=== PATIENT | male | born 1940 | race Caucasian/White ===

== ENCOUNTER 2019-12-21 23:53 | Inpatient (IN) ==
--- NOTE | 2019-12-22 00:14 | PROVIDER DOCUMENTATION ---
This chart was entered by Rhianna Webster Scribe, acting as scribe for Didier Alvarenga MD. 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 pt denies any other pain or injury Quality of Pain: reports: aching Severity in ED: mild Onset/Duration: 1-3 hours ago Timing: still present Modifying Factors: improves with: movement (increases pain) Any recent injury?: Yes Locality of Occurance: Home Similar Symptoms Previously?: No Recently seen or treated by another doctor?: No - FALL INJURY Location of Pain/Injury: reports: pelvis (left), lower extremity (left upper leg) Pain Radiation: reports: no radiation Reason for Fall: reports: tripped Symptoms prior to fall:: reports: none Loss of Consciousness: no loss of consciousness Injury Associated Symptoms: reports: joint pain, unable to bear weight, trouble walking. denies: sensory/motor loss, snap/crack/pop sensation, pain with inspiration - HIP/PELVIS PAIN/INJURY Hip Pain Location: reports: hip (L) Pain Radiation: reports: upper legs (left) Context / Method of Injury: reports: fall Associated Symptoms: reports: denies symptoms - LOWER EXTREMITY PAIN/INJURY Lower Extremities Pain: hip: left, leg: left Context / Method of Injury: reports: fell Associated Symptoms: reports: denies symptoms - UPPER EXTREMITY PAIN/INJURY Extremities Pain Location: hand: left Context / Method of Injury: reports: fell Associated Symptoms: reports: denies symptoms Review of Systems - Adult - REVIEW OF SYSTEMS - ADULT Constitutional: denies: chills, fever Eyes: denies: blurred vision, double vision Ears, Nose, Mouth & Throat: reports: no symptoms reported Cardiovascular: denies: chest pain, palpitations, syncope Respiratory: denies: shortness of breath Gastrointestinal: denies: abdominal pain, nausea, vomiting Genitourinary: reports: no symptoms reported Musculoskeletal: reports: bone pain (left upper leg), joint pain (left hip). denies: back pain, neck pain Integumentary: reports: no symptoms reported Neurological: denies: dizziness/vertigo, headache/migraines, loss of balance, numbness, syncope Psychiatric: reports: no symptoms reported Endocrine: reports: no symptoms reported Hematologic/Lymphatic: reports: no symptoms reported Allergic/Immunologic: reports: no symptoms reported All Other Systems: Reviewed and Negative Past History - Adult - PAST MEDICAL HISTORY-ADULT Review of Records: reports: Old Records Reviewed, Nursing Assessment Review, Medications Reviewed, Social history reviewed & non-contributory. Major Childhood Illnesses: reports: denies history Cardiovascular: reports: HTN Respiratory: reports: asthma Gastrointestinal: reports: denies history Obstetrical/Gynecological: reports: denies history Genitourinary: reports: denies history Musculoskeletal: reports: denies history Neurological: reports: denies history Psychiatric: reports: denies history Endocrine/Immune: reports: denies history Other Conditions: reports: denies history - PRIOR SURGERIES/PROCEDURES Surgical/Procedure History: reports: orthopedic (extremity) - PRIOR HOSPITALIZATIONS Prior Hospitalizations: reports: for other non-related - IMMUNIZATION STATUS Childhood Immunizations: See Nurse Assessment Flu Vaccine: See Nurse Assessment - FAMILY HISTORY Family History: reviewed, not pertinent - SOCIAL HISTORY Living Situation: family Physical Exam-Injury Related - Physical Exam-Injury Related Initial Vital Signs Reviewed: Yes General Appearance: appears well, alert, no apparent distress Immobilization?: negative: backboard, C-collar Eyes: PERRL/EOMI Head, Ears, Nose, Mouth & Throat: normocephalic/atraumatic, moist mucous membranes Neck: non-tender, full range of motion, supple, normal inspection Respiratory: chest non-tender, lungs clear, normal breath sounds, no respiratory distress, no accessory muscle use Cardiovascular: normal peripheral pulses, regular rate, rhythm, no edema Chest/Breast: deferred Peripheral Pulses: radial (R): 2+, radial (L): 2+ Abdominal Exam: normal bowel sounds, non tender, soft Lymphatic: no adenopathy Back Exam: normal inspection, no CVA tenderness, no vertebral tenderness Extremity: pelvis stable, tenderness (left upper leg tenderness). negative: deformity Integumentary: normal color, warm/dry, abrasion (dorsum, left hand) Neurologic: grossly normal, no motor/sensory deficits Psych/Mental Status: normal mood/affect, normal thought content, normal thought process, oriented x 3 - Glascow Coma Score Best Eye Response (Teddy): (4) open spontaneously Best Verbal Response (Norton): (5) oriented Best Motor Response (Norton): (6) obeys commands Teddy Total: 15 Progress - PLAN OF CARE/RESULTS Progress/Plan/Lab Results: Vital Signs - 8 hr 12/22/19 00:12 Temperature 97.9 F Pulse Rate 63 Respiratory Rate 18 Blood Pressure 199/90 O2 Sat by Pulse Oximetry 95 Orders Category Date Time Status CHEST-1 VIEW [RAD] Stat Exams 12/22/19 01:15 Ordered XRAY PELVIS W/HIP 2-3VW LT [RAD] Stat Exams 12/22/19 00:04 Taken CBC WITH ELECTRONIC DIFF [HEME] Stat Lab 12/22/19 01:13 Ordered COMPREHENSIVE METABOLIC PANEL [CHEM] Stat Lab 12/22/19 01:13 Ordered PT [PROTIME WITH INR] [COAG] Stat Lab 12/22/19 01:14 Uncollected EKG [EKG] Stat Ther 12/22/19 01:14 Ordered - CONSULTS/PCP/HOSPITALIST Notification #1 *Consult/PCP/Hospitalist*: Dr. Gómez, orthopedist Time Discussed: 01:05 Reason/Comments: admit to hospitalist Consult Disposition: Admit #2 Consult: Dr. Finch, hospitalist Time Discussed: 01:15 Consult Disposition: Admit Departure - Departure Date of Disposition Decision: 12/22/19 Time of Disposition Decision: 01:22 DIAGNOSIS: Fracture, intertrochanteric, left femur Qualifiers: Encounter type: initial encounter Fracture type: closed Fracture alignment: nondisplaced Qualified Code(s): S72.145A - Nondisplaced intertrochanteric fracture of left femur, initial encounter for closed fracture Disposition: ADMITTED INPATIENT 09 Certified Medical Emergency: Emergent Condition: Stable Referrals and Follow-Ups: Bertrand Mathis [Primary Care Provider] - - Critical Care Note This patient required my direct & personal management of CC.: No Attestation - Physician/ MAMIE Attestation Patient care was provided by Advanced Practice Provider:: No The physician spent face to face time with patient:: Yes Advanced Practice Provider documentation review:: Supervising physician onsite and consulted in the evaluation and care of this patient. The physician did have a face to face encounter with the patient. This chart was documented by the indicated scribe, (Rhianna Webster Scribe) and accurately reflects the services I performed and decisions made by me, Didier Alvaernga MD, as attested by the provider's signature.
[2019-12-22] MEDS ORDERED: DILAUDID IV ONE (01:30)
[2019-12-22] MEDS ORDERED: ZOFRAN IV ONE (01:31)
[2019-12-22] MEDS ORDERED: NS 1,000 ML IV SCH (02:15)
[2019-12-22 02:20] LABS: BASO# 0.01 X1000 (0.0-0.2); BASO% 0.1 % (0.0-0.8); EOS# 0.04 X1000 (0.0-0.7); EOS% 0.4 % (0.0-10.0); HEMATOCRIT 38.6 % (42.0-52.0); HEMOGLOBIN 13.2 g/dL (14.0-18.0); IMM GRAN# 0.02 X1000 (0.0-0.04); IMM GRAN% 0.2 % (0.0-0.5); LYMPH% 9.1 % (20.5-51.1); MCH 33.6 PG (27-31); MCHC 34.2 g/dL (33-37); MCV 98.2 FL (81-99); MONO# 0.49 X1000 (0.11-0.59); MPV 9.9 FL (7.4-10.4); NEUT# 8.41 X1000 (1.4-6.5); NEUT% 85.2 % (42.2-75.2); PLT 165 X1000 (130-400); RBC 3.93 XMIL (4.7-6.1); RDW 14.1 % (11.5-14.5); WBC 9.87 X1000 (4.8-10.8)
[2019-12-22 02:28] LABS: INR 1.02; PROTIME 13.5 Seconds (11.0-16.0)
[2019-12-22 03:11] LABS: AGAP 13; ALB/GLOB RATIO 1.3; ALBUMIN 3.8 g/dL (3.5-5.0); ALKALINE PHOSPHATASE 48 U/L (32-122); BUN 18 mg/dL (8-22); CALCIUM 9.2 mg/dL (8.8-10.2); CHLORIDE 103 mmol/L (98-107); COSMO 281; CREATININE 0.9 mg/dL (0.7-1.2); ESTIMATED GFR > 60; GLUCOSE 123 mg/dL (70-104); GOT 19 U/L (10-34); GPT 11 U/L (10-44); SODIUM 139 mmol/L (136-145); TCO2 23 mmol/L (25-35); TOTAL BILIRUBIN 0.73 mg/dL (0.20-1.00); TOTAL PROTEIN 6.8 g/dL (6.3-8.3)
[2019-12-22] MEDS: NORCO-5 PO PRN ×2 (04:33→08:59)
--- NOTE | 2019-12-22 05:27 | Diag Imaging Result Doc PS360 ---
EXAM: CHEST-1 VIEW HISTORY: left hip fracture TECHNIQUE: Single view COMPARISON: 07/30/2014 FINDINGS: The lungs are well expanded. The right hemidiaphragm is elevated. No contusion. No pneumothorax. The heart is not enlarged. The vessels are not distended. There are no infiltrates. No effusion identified. IMPRESSION: Negative exam. Electronically signed by Ayaan Montenegro 12/22/2019 5:24 AM
--- NOTE | 2019-12-22 05:34 | Diag Imaging Result Doc PS360 ---
EXAM: XRAY PELVIS W/HIP 2-3VW LT HISTORY: left hip pain TECHNIQUE: Four views COMPARISON: None. FINDINGS: There is an intertrochanteric fracture to the left hip. There is several millimeters of separation. The femoral head remains in the acetabulum. IMPRESSION: Intertrochanteric fracture to the left hip. Electronically signed by Ayaan Montenegro 12/22/2019 5:31 AM
[2019-12-22] MEDS: SYNTHROID PO SCH (09:01)
[2019-12-22] MEDS: TOPROL XL PO SCH (09:01)
[2019-12-22] MEDS: FLOMAX PO SCH (09:01)
[2019-12-22] MEDS: PRINIVIL PO SCH (09:01)
--- NOTE | 2019-12-22 09:44 | HISTORY AND PHYSICAL ---
CHIEF COMPLAINT: Fall prior to admission. HISTORY OF PRESENT ILLNESS: Mr. Daniel Goss is an 79-year-old male who has a history of hypertension, hypothyroidism as well as benign prostatic hypertrophy. The patient tripped and fell prior to admission. On presenting to the emergency department, the patient was noted to have an intertrochanteric fracture involving the left hip. The patient will now be admitted for repair of the fracture. PAST MEDICAL HISTORY: Hypertension, hypothyroidism, as well as benign prostatic hypertrophy. SOCIAL HISTORY: No history of cigarette smoking, alcohol or drug use. ALLERGIES: No known drug allergies. FAMILY HISTORY: Not remarkable. PAST SURGICAL HISTORY: Patient has had left knee surgery as well as laser surgery to the prostate. MEDICATIONS: Include the following. Aspirin 81 mg p.o. daily, lisinopril 10 mg p.o. twice a day, metoprolol 25 mg p.o. twice a day, spironolactone 25 mg 0.5 tablet daily, levothyroxine 50 mcg p.o. once a day. REVIEW OF SYSTEMS: Constitutional: No fever. Central nervous system: No headaches. Eyes: Uses glasses. ENT: No sinus problems or hearing loss. Cardiovascular: No chest pain. Respiratory: No cough. Gastrointestinal: No nausea, vomiting, diarrhea. Genitourinary: No dysuria. Dermatology: No skin lesions. Hematology: No bleeding problems. Psychiatric: No anxiety or depression. Endocrinology: Has thyroid disease but no diabetes. PHYSICAL EXAMINATION: VITAL SIGNS: Temperature 97.9 degrees, respirations 18, blood pressure 199/90, oxygen saturation is 95%. HEENT: Atraumatic, normocephalic. He is anicteric. No oral lesions noted. NECK: No lymphadenopathy or thyromegaly. CARDIOVASCULAR: S1, S2. RESPIRATORY: Has evidence of good entry bilaterally. ABDOMEN: Soft, nontender. No masses felt. EXTREMITIES: No evidence of edema. CENTRAL NERVOUS SYSTEM: No obvious focal deficit noted. LABORATORY DATA: WBC is 9.87, hematocrit is 38.6, with a platelet count of 163,000. INR is 1.02. Sodium is 139, potassium 4.0, chloride is 103, bicarb 23, BUN is 18, creatinine 0.9. IMAGING: X-ray of the pelvis and hip shows evidence of intertrochanteric fracture involving the left hip. ASSESSMENT AND PLAN: 1. Intertrochanteric fracture involving the left hip. Consult with Orthopedics for repair of the fracture. Optimize pain control. 2. Hypertension. Continue current antihypertensive regimen. 3. Hypothyroidism. Check thyroid function tests. Resume her levothyroxine. 4. History of benign prostatic hypertrophy. Aware. 5. Deep vein thrombosis prophylaxis. Sequential compression devices. 6. Gastrointestinal prophylaxis. Proton pump inhibitor. cc: Rob Schulz MD MTDD
--- NOTE | 2019-12-22 10:08 | ORTHOPAEDICS CONSULTATION ---
DATE: 12/22/2019 REASON FOR CONSULTATION: Left hip pain after fall. HISTORY OF PRESENT ILLNESS: Mr. Goss is an 79-year-old male with a past medical history of congestive heart failure, bilateral PEs, prostate cancer, BPH, and hypertension who presented to the [facility] Emergency Room after a fall in his home. He states he got up to go to the restroom in the middle of the night and he tripped over the bed. He denied hitting the head, loss of consciousness, dizziness, or lightheadedness prior to fall. He denies chest pain or shortness of breath, nausea, or vomiting. He states he has significant left hip pain and has been unable to bear weight. He was brought by EMS to [facility] Emergency Room. X-rays were taken in the ER that revealed a left intertrochanteric hip fracture. Orthopedics has been consulted for management of the left hip fracture. PAST MEDICAL HISTORY: 1. Bilateral PEs, not currently on any anticoagulation. 2. Prostate cancer. 3. BPH. 4. Hypertension. 5. Congestive heart failure with an EF of 20% in June 2014. PAST SURGICAL HISTORY: Left knee arthroscopy. FAMILY HISTORY: Noncontributory. SOCIAL HISTORY: Denies tobacco, alcohol, or illicit drug use. He does still live at home. He does still run a small business. ALLERGIES: No known drug allergies. HOME MEDICATIONS: 1. Synthroid 50 mcg p.o. daily. 2. Lisinopril 5 mg p.o. daily. 3. Toprol-XL 25 mg p.o. daily. 4. Flomax 0.4 mg p.o. daily. REVIEW OF SYSTEMS: A 10 point review of system was conducted and negative except what was mentioned in the HPI. PHYSICAL EXAMINATION: Vital Signs: Temperature is 97.8 degrees, pulse 63, respirations 16, blood pressure 152/64. He is 98% on 3 L nasal cannula. General: This is a well-appearing 79-year-old male in no acute distress. Neurological: He is alert oriented x3 with no focal deficits. HEENT: Head is atraumatic, normocephalic. Pupils are equal, round, reactive to light. Cardiovascular: Regular rate and rhythm. Pulmonary: Breathing is even and unlabored with equal chest rise. Abdomen: Appears nondistended. Extremities: The left lower extremity is tender to palpation at the hip. He is short and externally rotated. He is able to dorsi and plantar flex the foot. He has good sensation of that lower extremity. There are no skin ulcerations or abrasions. He denies tenderness to palpation to any other extremity. IMAGING: A left hip and pelvis film reviewed and interpreted by Dr. Bonilla shows a left intertrochanteric femur fracture. ASSESSMENT: Left intertrochanteric femur fracture. PLAN: We will plan to do a trochanteric femoral nailing of this left hip today hopefully. He has had nothing to eat or drink before midnight last night. He is not on any blood thinners. Overall, he looks medically stable. We will make sure we get clearance from the hospitalist, but as long as everyone is in agreement we will plan to do this today. Dr. Bonilla has talked with the patient who is in complete understanding of the situation and wishes to proceed with surgery. Risks and benefits were discussed. Risks include, but not limited to, damage to nerves, arteries, veins, malunion, nonunion, hardware related issues, continued pain, risk of DVT, which is increased since he has had previous pulmonary embolism, risk of infection, risk of poor wound healing, and risk of general anesthesia. After discussing these risks with the patient he wishes to proceed. We will try and get him on the schedule today. Dictated by BELLA Hernandes for Joseph Bonilla MD cc: BELLA Hernandes MD
[2019-12-22] MEDS ORDERED: DIPRIVAN 1% ONE (10:20)
[2019-12-22] MEDS ORDERED: KEFZOL 2 GM/D5W 2 GM/50 ML IVPB IV ONE (10:31)
[2019-12-22] MEDS ORDERED: KEFZOL 1 GM/D5W 2 GM/100 ML IVPB ONE (10:33)
[2019-12-22] MEDS ORDERED: XYLOCAINE-MPF 2% ONE (10:59)
[2019-12-22] MEDS ORDERED: FENTANYL ONE (11:01)
[2019-12-22] MEDS ORDERED: EPHEDRINE ONE (11:28)
[2019-12-22] MEDS ORDERED: OFIRMEV 1000 MG/ISOTONIC SOLN 1,000 MG/100 ML BOTTLE ONE (11:59)
[2019-12-22] MEDS ORDERED: DECADRON ONE (11:59)
[2019-12-22] MEDS ORDERED: ZOFRAN ONE (11:59)
[2019-12-22] MEDS ORDERED: NS 1,000 ML ONE (12:41)
[2019-12-22] MEDS ORDERED: ZOFRAN IV PRN (13:30)
[2019-12-22] MEDS ORDERED: HALDOL IV PRN (13:30)
[2019-12-22] MEDS ORDERED: MORPHINE IV PRN (13:30)
[2019-12-22] MEDS ORDERED: MILK OF MAGNESIA PO PRN (13:30)
--- NOTE | 2019-12-22 19:12 | OPERATIVE NOTE ---
PROCEDURE DATE: 12/22/2019 PREOPERATIVE DIAGNOSIS: Left intertrochanteric hip fracture. POSTOPERATIVE DIAGNOSIS: Left intertrochanteric hip fracture. PROCEDURE PERFORMED: Left trochanteric fixation and nail placement. ANESTHESIA: Spinal. SURGEON: Joseph Bonilla MD. ZIPPER MACHINE OPERATOR: BELLA Ferguson COMPLICATIONS: None. BLOOD LOSS: Minimal. DESCRIPTION OF PROCEDURE: The patient was brought to the operative suite and placed in the supine position. After successful administration of spinal anesthesia, patient was placed on the OSI table in the usual position for left hip. The left hip was then prepped and draped in usual sterile fashion. A longitudinal incision was made proximal to the tip of the greater trochanter. A guide pin was placed in the center of the femoral canal and was reamed with a solid cannulated reamer, then with the cannulated reamer to 13 mm. A short 12 TFN was then driven into place, then through a stab incision laterally using the guide. The guide pin was placed in center of the femoral head on AP and lateral images. It was measured to 105 mm. The track of the helical blade was reamed, and then the helical blade was driven into place. It was locked proximally and then released a half turn to allow for compression. Using the proximal guide, the distal locking screw was placed. Using the guide, it was drilled properly, and screw of 42 mm was measured and driven into place. This was placed after releasing traction. The guide was removed. The x-ray showed excellent placement of the hardware and reduction of the fracture in AP and lateral images. The wounds were copiously. Skin was approximated with 2-0 Vicryl. Skin was closed with skin anjali, and a sterile dressing was applied. The patient tolerated the procedure well without complications. At the end of the procedure, all counts were correct x2. The patient was transferred to the recovery room in stable condition. cc: Joseph Bonilla MD
[2019-12-22] MEDS: NS 1,000 ML IV SCH (19:51)
[2019-12-22] MEDS: COLACE PO SCH (20:26)
[2019-12-22] MEDS: TYLENOL PO SCH (20:26)
[2019-12-22] MEDS: KEFZOL 2 GM/D5W 2 GM/50 ML IVPB IV SCH (20:26)
[2019-12-23] MEDS: KEFZOL 2 GM/D5W 2 GM/50 ML IVPB IV SCH ×2 (04:45→12:17)
[2019-12-23] MEDS: TYLENOL PO SCH ×3 (04:45→20:38)
[2019-12-23] MEDS: NS 1,000 ML IV SCH ×2 (04:53→20:35)
[2019-12-23] MEDS: SYNTHROID PO SCH (06:09)
[2019-12-23] MEDS: LOVENOX SUBQ SCH (06:10)
[2019-12-23 06:46] LABS: HEMATOCRIT 31.3 % (42.0-52.0); HEMOGLOBIN 10.4 g/dL (14.0-18.0)
[2019-12-23 07:14] LABS: AGAP 10; BUN 14 mg/dL (8-22); CALCIUM 8.5 mg/dL (8.8-10.2); CHLORIDE 105 mmol/L (98-107); COSMO 272; CREATININE 0.9 mg/dL (0.7-1.2); ESTIMATED GFR > 60; GLUCOSE 123 mg/dL (70-104); POTASSIUM 4.4 mmol/L (3.5-5.1); SODIUM 135 mmol/L (136-145); TCO2 20 mmol/L (25-35)
[2019-12-23] MEDS ORDERED: KEFZOL 2 GM/D5W 2 GM/50 ML IVPB IV ONE (08:00)
[2019-12-23] MEDS ORDERED: VITAMIN D PO SCH (10:00)
[2019-12-23] MEDS: PRINIVIL PO SCH (10:21)
[2019-12-23] MEDS: FERROUS SULFATE PO SCH (10:21)
[2019-12-23] MEDS: FLOMAX PO SCH (10:21)
[2019-12-23] MEDS: NORCO-5 PO PRN (10:21)
[2019-12-23] MEDS: ALDACTONE PO SCH (10:22)
[2019-12-23] MEDS: PERIDEX MT SCH ×2 (10:23→20:38)
[2019-12-23] MEDS: TOPROL XL PO SCH (10:24)
--- NOTE | 2019-12-23 15:34 | PROGRESS NOTE ---
DATE: 12/23/2019 SUBJECTIVE: The patient is sitting up in a chair. He has no complaints. OBJECTIVE: Vital Signs: Temperature 98 degrees, blood pressure 143/59, heart rate 74, respirations 16, O2 saturations 97% on room air. General: This is an elderly male sitting in a chair in no acute distress. Heart: S1, S2 normal. Regular rate and rhythm. Lungs: Clear to auscultation bilaterally. Abdomen: Positive bowel sounds. Soft, nontender, nondistended. Extremities: No edema, no cyanosis. Neuro: The patient is alert and oriented x3. LABS: Hemoglobin 10, hematocrit 31. Sodium 135, potassium 4.4, chloride 105, CO2 20, BUN 14, creatinine 0.9, glucose 123. ASSESSMENT AND PLAN: 1. Status post left trochanteric fixation and nail placement. Management as per the orthopedic surgeon. 2. Vitamin D deficiency. The patient has been started on vitamin D replacement. 3. Anemia. Will continue to monitor closely. 4. Hypothyroidism. Continue on Synthroid. 5. Hypertension. Continue on Toprol-XL. 6. Benign prostatic hypertrophy. Continue on Flomax. 7. Constipation. Will start the patient on laxative therapy. 8. Deep vein thrombosis prophylaxis. Continue on Lovenox. cc: Anisha Argueta MD
--- NOTE | 2019-12-23 19:17 | ORTHOPAEDICS PROGRESS NOTE ---
DATE: 12/23/2019 SUBJECTIVE: No acute events overnight. Patient states he has been doing well since surgery. He is tolerating a diet. Still has Zavala catheter in. He ambulated with physical therapy this morning. He states he wants to go home upon discharge. OBJECTIVE: Hematocrit 31. Afebrile. Vital signs stable.Extremities: Examination of left lower extremity shows surgical dressing to be clean, dry, intact. No erythema, drainage. Thigh and calf soft and compressible. Neurovascularly intact. ASSESSMENT: An 79-year-old male status post closed reduction intramedullary nailing, left intertrochanteric femur fracture. Postoperative day 1. PLAN: 1. Patient is weightbearing as tolerated, left lower extremity. Physical therapy to mobilize with assistive device. 2. Ice left lower extremity as needed for pain. 3. Appreciate hospitalist recommendations. 4. Lovenox for DVT prophylaxis as well as MIGUEL ruiz. 5. Disposition per primary team. The patient wished to be discharged home with home health physical therapy. I think this is reasonable as long as he is continuing to mobilize appropriately and has sufficient help at the house.
[2019-12-23] MEDS: LACTULOSE PO SCH (20:38)
[2019-12-23] MEDS: MIRALAX PO SCH (20:38)
[2019-12-23] MEDS: COLACE PO SCH (20:38)
[2019-12-24] MEDS: TYLENOL PO SCH ×3 (05:04→21:02)
[2019-12-24] MEDS: SYNTHROID PO SCH ×2 (05:04→06:56)
[2019-12-24] MEDS: LOVENOX SUBQ SCH (05:04)
[2019-12-24] MEDS: NS 1,000 ML IV SCH ×3 (06:56→21:02)
[2019-12-24 07:05] LABS: HEMATOCRIT 31.5 % (42.0-52.0); HEMOGLOBIN 10.2 g/dL (14.0-18.0)
[2019-12-24 07:35] LABS: AGAP 9; BUN 14 mg/dL (8-22); CALCIUM 8.3 mg/dL (8.8-10.2); CHLORIDE 104 mmol/L (98-107); COSMO 273; ESTIMATED GFR > 60; GLUCOSE 105 mg/dL (70-104); POTASSIUM 4.1 mmol/L (3.5-5.1); SODIUM 136 mmol/L (136-145); TCO2 23 mmol/L (25-35)
[2019-12-24] MEDS: MIRALAX PO SCH ×2 (08:02→21:02)
[2019-12-24] MEDS: PERIDEX MT SCH ×2 (08:02→21:02)
[2019-12-24] MEDS: LACTULOSE PO SCH ×2 (08:02→21:02)
[2019-12-24] MEDS: ALDACTONE PO SCH (08:03)
[2019-12-24] MEDS: FLOMAX PO SCH (08:03)
[2019-12-24] MEDS: PRINIVIL PO SCH (08:03)
[2019-12-24] MEDS: TOPROL XL PO SCH (08:04)
[2019-12-24] MEDS: FERROUS SULFATE PO SCH (08:04)
--- NOTE | 2019-12-24 17:45 | PROGRESS NOTE ---
DATE: 12/24/2019 SUBJECTIVE: The patient is resting in bed. He has no complaints. He states he has not had a bowel movement. OBJECTIVE: Vital Signs: Temperature 98.5 degrees, blood pressure 160/67, heart rate 72, respirations 20, O2 saturation 98% on room air. General: This is an elderly male lying in bed in no acute distress. Heart: S1, S2 normal. Regular rate and rhythm. Lungs: Clear to auscultation bilaterally. Abdomen: Positive bowel sounds. Soft, nontender, nondistended. Extremities: No edema. No cyanosis. Neurologic: The patient is alert and oriented x3. LABS: Hemoglobin 10, hematocrit 31, BUN 14, creatinine is low 1. ASSESSMENT AND PLAN: 1. Status post left trochanteric fixation and nail placement. Management as per the orthopedic surgeon. 2. Vitamin D deficiency. Continue vitamin D replacement. 3. Anemia. Stable. 4. Hypertension. Continue on the current antihypertensive regimen. 5. Hypothyroidism. Continue on Synthroid. 6. Benign prostatic hypertrophy. Continue on Flomax. 7. Constipation. Continue with laxative therapy. 8. Deep vein thrombosis prophylaxis. Continue on Lovenox. 9. Disposition. The patient can be discharged to rehab once a bed is available. cc: Anisha Argueta MD MTDD
--- NOTE | 2019-12-24 20:14 | ORTHOPAEDICS PROGRESS NOTE ---
DATE: 12/24/2019 SUBJECTIVE: No acute events overnight. Patient is doing well. He states that his pain is controlled. He got up and ambulated in the hallway with therapy today. He is tolerating a diet. OBJECTIVE: Afebrile. Vital signs are stable. Hematocrit 32.Extremities: Examination of left lower extremity shows surgical dressing to be clean, dry, intact. Thigh and calf soft and compressible. Neurovascularly intact. ASSESSMENT: An 79-year-old male status post closed reduction intramedullary nailing, left intertrochanteric femur fracture. Postoperative day 2. PLAN: 1. The patient is weightbearing as tolerated left lower extremity. Physical therapy to mobilize with assistive device. 2. Ice to the left lower extremity as needed for pain. 3. Lovenox deep vein thrombosis prophylaxis. 4. Appreciate hospitalist recommendations. 5. Disposition per primary team. The patient is to follow up with Dr. Bonilla in 10 to 14 days at his scheduled appointment.
[2019-12-24] MEDS: COLACE PO SCH (21:02)
[2019-12-24] MEDS: DULCOLAX PR SCH (21:03)
[2019-12-25] MEDS: LOVENOX SUBQ SCH (05:14)
[2019-12-25] MEDS: SYNTHROID PO SCH ×2 (05:14→06:19)
[2019-12-25] MEDS: TYLENOL PO SCH ×3 (05:14→20:12)
[2019-12-25] MEDS: NS 1,000 ML IV SCH ×2 (05:16→15:38)
[2019-12-25 06:58] LABS: HEMATOCRIT 29.9 % (42.0-52.0)
[2019-12-25 07:18] LABS: AGAP 11; BUN 10 mg/dL (8-22); CALCIUM 8.4 mg/dL (8.8-10.2); CHLORIDE 104 mmol/L (98-107); COSMO 275; CREATININE 0.9 mg/dL (0.7-1.2); ESTIMATED GFR > 60; GLUCOSE 99 mg/dL (70-104); POTASSIUM 4.2 mmol/L (3.5-5.1); SODIUM 138 mmol/L (136-145); TCO2 23 mmol/L (25-35)
[2019-12-25] MEDS: DULCOLAX PR SCH ×2 (10:58→20:13)
[2019-12-25] MEDS: LACTULOSE PO SCH ×2 (10:59→20:12)
[2019-12-25] MEDS: MIRALAX PO SCH ×2 (11:00→20:12)
[2019-12-25] MEDS: PRINIVIL PO SCH ×2 (11:05→20:11)
[2019-12-25] MEDS: ALDACTONE PO SCH (11:05)
[2019-12-25] MEDS: TOPROL XL PO SCH ×2 (11:06→20:11)
[2019-12-25] MEDS: FERROUS SULFATE PO SCH (11:06)
[2019-12-25] MEDS: FLOMAX PO SCH (11:06)
[2019-12-25] MEDS: PERIDEX MT SCH ×2 (11:06→20:12)
[2019-12-25] MEDS: OXY IR PO PRN (16:41)
--- NOTE | 2019-12-25 16:48 | PROGRESS NOTE ---
DATE: 12/25/2019 SUBJECTIVE: No acute events noted overnight. The patient is resting comfortably in bed. OBJECTIVE: Vital Signs: Temperature 98.6 degrees, blood pressure 144/91, heart rate 75, respirations 20, and O2 saturations 100% on room air. General: This is a chronically ill- appearing elderly male lying in bed in no acute distress. Heart: S1, S2 normal. Regular rate and rhythm. Lungs: Equal air entry bilaterally. No wheezing. No rales. No rhonchi. Abdomen: Positive bowel sounds. Soft, nontender, and nondistended. Extremities: No edema. No cyanosis. Neurologic: The patient is alert and oriented x3. LABORATORY DATA: Hemoglobin 10, hematocrit 29, sodium 138, potassium 4.2, chloride 104, CO2 23, BUN 10, and creatinine 0.9. ASSESSMENT AND PLAN: 1. Status post left trochanteric fixation and nail placement. Stable. The patient is awaiting inpatient rehab placement. 2. Vitamin D deficiency. Continue with vitamin D replacement. 3. Uncontrolled hypertension. We will increase the dosages of the patient's lisinopril and Toprol-XL. 4. Hypothyroidism. Continue on Synthroid. 5. Benign prostatic hypertrophy. Continue on Flomax. 6. Constipation. Continue with laxative therapy. 7. Deep vein thrombosis prophylaxis. The patient is on Lovenox. 8. Disposition. The [facility] be [facility] once the insurance approves the transfer. cc: Anisha Argueta MD MTDD
[2019-12-25] MEDS: APRESOLINE PO SCH (20:11)
[2019-12-25] MEDS: COLACE PO SCH (20:11)
[2019-12-26] MEDS: TYLENOL PO SCH ×2 (06:03→13:01)
[2019-12-26] MEDS: SYNTHROID PO SCH (06:03)
[2019-12-26] MEDS: APRESOLINE PO SCH ×2 (06:03→13:01)
[2019-12-26] MEDS: LOVENOX SUBQ SCH (06:04)
[2019-12-26 07:46] LABS: AGAP 12; BUN 13 mg/dL (8-22); CALCIUM 9.3 mg/dL (8.8-10.2); CHLORIDE 103 mmol/L (98-107); COSMO 275; CREATININE 0.9 mg/dL (0.7-1.2); ESTIMATED GFR > 60; GLUCOSE 109 mg/dL (70-104); POTASSIUM 4.3 mmol/L (3.5-5.1); SODIUM 137 mmol/L (136-145); TCO2 22 mmol/L (25-35)
[2019-12-26] MEDS: FERROUS SULFATE PO SCH (09:54)
[2019-12-26] MEDS: ALDACTONE PO SCH (09:54)
[2019-12-26] MEDS: MIRALAX PO SCH (09:54)
[2019-12-26] MEDS: FLOMAX PO SCH (09:55)
[2019-12-26] MEDS: TOPROL XL PO SCH (09:55)
[2019-12-26] MEDS: LACTULOSE PO SCH (09:55)
[2019-12-26] MEDS: PERIDEX MT SCH (09:55)
[2019-12-26] MEDS: DULCOLAX PR SCH (09:56)
[2019-12-26] MEDS: PRINIVIL PO SCH (09:56)
[2019-12-26] MEDS: OXY IR PO PRN (10:01)
[2019-12-26 12:12] VITALS: BP 127/83
--- NOTE | 2019-12-26 13:47 | DISCHARGE SUMMARY ---
ADMISSION DATE: 12/22/2019 DISCHARGE DATE: 12/26/2019 DISCHARGE DISPOSITION: Rehab. DISCHARGE CONDITION: Hemodynamically stable. He is alert and oriented x3. He denies any chest pain, shortness of breath, or cough. He has some soreness in the left lateral thigh but intact pulses. DISCHARGE INSTRUCTIONS: He and his family were provided detailed discharge instructions including postoperative complication including pneumonia, bleeding, infection. Signs and symptoms were explained to them and they were advised to have followup with orthopedic doctor and continue physical activity including blood thinners. All of their questions were answered. DISCHARGE DIAGNOSES: 1. Mechanical fall. 2. Left intertrochanteric fracture. OTHER DIAGNOSES: 1. History of hypothyroidism. 2. History of essential hypertension. 3. Vitamin D deficiency. DISCHARGE MEDICATIONS: 1. Aspirin 81 mg daily. 2. Levothyroxine 50 mcg daily. 3. Lisinopril 10 mg b.i.d. 4. Spironolactone 12.5 mg daily. 5. Metoprolol extended release 25 mg b.i.d. 6. Docusate 200 mg at nighttime. 7. Ferrous sulfate 325 mg with breakfast. 8. Tamsulosin 0.4 mg daily. 9. Enoxaparin 40 mg subcutaneous every 24 hours for 4 to 5 weeks for DVT prophylaxis after hip surgery. 10. MiraLAX 17 g b.i.d. 11. [place] 5 one tablet every 6 hours as needed for pain. 12. Vitamin D2, 50,000 units daily. VITAL SIGNS: At the time of discharge, temperature 98.1 degrees, pulse 60, respiratory rate 20, blood pressure 149/65, saturating 95% on room air. PHYSICAL EXAMINATION: General: Not in acute distress. HEENT: Oral cavity is moist. Lungs: Air entry bilaterally equal. No wheeze, rhonchi, crackles. Cardiovascular: S1, S2 normal. No murmur, rub or gallop. Abdomen: Soft, nontender. Extremities: No lower extremity edema. Left lateral thigh wound has anjali without any bleeding. Mild tenderness. Intact dorsalis pedis and posterior tibial pulses intact. Neurologic: He is alert and oriented x3. Skin: Turgor appears normal with normal capillary refill time. LABORATORY DATA: At the time of discharge, WBC 9.8, hemoglobin 10, platelets 165,000. BUN 13, creatinine 0.9. MICROBIOLOGY: None. IMAGING: At the time of hospital admission and discharge, hip and pelvis x-ray had intertrochanteric fracture of the left hip. PROCEDURES DURING HOSPITAL ADMISSION: On 12/22/2019, he underwent left trochanteric fixation and nail placement. HOSPITAL COURSE SUMMARY: Mr. Goss is an 79-year-old man who presented on 12/22/2019 with chief complaints of mechanical fall prior to admission. He tripped and fell down and had started experiencing left-sided groin region pain. In the emergency room, he was found to have intertrochanteric fracture of the left femur and so Orthopedic team was consulted. On 12/22/2019, he underwent left trochanteric fixation and nail placement. Postoperative course was unremarkable. Rehab was consulted and the patient will be discharged to rehab. He will continue enoxaparin for DVT prophylaxis as long as he is in rehab. Later on, he should have a discussion with orthopedic physician about continuing oral anticoagulation as needed for up to 35 days. Detailed discharge instructions were provided to him. TIME SPENT: 25 minutes spent in preparing discharge summary. I sat down with the patient and his at bedside. I explained to them about routine course of fracture healing, postoperative complication including pneumonia, urine infection. I discussed with them about clinical features. I allowed them to ask any questions related to them and answered them. cc: MD LUDA Johnston
== END 2019-12-26 14:20 | DRG 481 ==
LOC: SUPCPDRO → ED 23:53 → SUATTDRO 12-22 04:27 → EDIPHOLD 12-22 04:27 → 4N 12-22 06:36
PROVIDERS: ATTEND Internal Medicine

== ENCOUNTER 2019-12-29 15:04 | Observation (INO) ==
--- NOTE | 2019-12-29 17:47 | Diag Imaging Result Doc PS360 ---
EXAM: CT HEAD W/O CONTRAST HISTORY: stroke like symptoms TECHNIQUE: CT head without contrast COMPARISON: 12/14/2013 FINDINGS: No parenchymal hemorrhage. No epidural or subdural hematoma. No subarachnoid hemorrhage. There are mild chronic microvascular ischemic changes. No mass identified on this noncontrasted exam. No hydrocephalus. No sinus opacification. IMPRESSION: 1.No hemorrhage 2.Mild chronic microvascular ischemic changes This exam was performed using automated exposure control, adjustment of mA or kV according to patient size, and/or use of iterative reconstruction technique. Electronically signed by Ayaan Montenegro 12/29/2019 5:45 PM
[2019-12-29 18:11] LABS: BASO# 0.01 X1000 (0.0-0.2); BASO% 0.1 % (0.0-0.8); EOS# 0.12 X1000 (0.0-0.7); EOS% 1.3 % (0.0-10.0); HEMATOCRIT 35.7 % (42.0-52.0); HEMOGLOBIN 11.5 g/dL (14.0-18.0); IMM GRAN# 0.04 X1000 (0.0-0.04); IMM GRAN% 0.4 % (0.0-0.5); LYMPH% 8.4 % (20.5-51.1); MCH 33.3 PG (27-31); MCHC 32.2 g/dL (33-37); MCV 103.5 FL (81-99); MONO# 0.74 X1000 (0.11-0.59); MONO% 7.8 % (1.7-9.3); MPV 10.1 FL (7.4-10.4); NEUT# 7.83 X1000 (1.4-6.5); PLT 246 X1000 (130-400); RBC 3.45 XMIL (4.7-6.1); RDW 15.7 % (11.5-14.5); WBC 9.54 X1000 (4.8-10.8)
[2019-12-29 18:22] LABS: INR 1.06; PROTIME 13.9 Seconds (11.0-16.0); PTT 28.7 Seconds (22.3-41.8)
[2019-12-29 18:25] LABS: URINE SOURCE CLEAN CATCH
[2019-12-29 18:26] LABS: BILIRUBIN URINE NEGATIVE (NEGATIVE); BLOOD URINE MODERATE (NEGATIVE); COLOR YELLOW; GLUCOSE URINE NEGATIVE (NEGATIVE); KETONE URINE NEGATIVE (NEGATIVE); LEUKOCYTES URINE LARGE (NEGATIVE); NITRITE URINE NEGATIVE (NEGATIVE); PH URINE 6.5; PROTEIN URINE 50 mg/dL (NEGATIVE); SP GRAVITY URINE 1.026; TURBIDITY URINE HAZY (CLEAR); UROBILINOGEN URINE >12 mg/dL (NORMAL)
[2019-12-29 18:53] LABS: ALB/GLOB RATIO 1.5; ALBUMIN 4.1 g/dL (3.5-5.0); CALCIUM 9.7 mg/dL (8.8-10.2); CREATININE 1.2 mg/dL (0.7-1.2); POTASSIUM 4.6 mmol/L (3.5-5.1); TOTAL BILIRUBIN 1.34 mg/dL (0.20-1.00); TOTAL PROTEIN 6.8 g/dL (6.3-8.3)
[2019-12-29 18:55] LABS: UR EPITHELIAL CELLS <10 /HPF (<10); URINE BACTERIA 2+ /HPF; URINE RBC TNTC /HPF (<10); URINE WBC TNTC /HPF (<10)
[2019-12-29 18:58] LABS: UR AMPHETAMINES QUAL NONE DETECTED (NONE DETECT); UR BARBITUATES QUAL NONE DETECTED (NONE DETECT); UR BENZODIAZEPIN QUAL NONE DETECTED (NONE DETECT); UR CANNABINOIDS QUAL NONE DETECTED (NONE DETECT); UR COCAINE QUAL NONE DETECTED (NONE DETECT); UR METHADONE QUAL NONE DETECTED (NONE DETECT); UR OPIATES QUAL PRESUMPTIVE POSITIVE (NONE DETECT); UR OXYCODONE QUAL NONE DETECTED (NONE DETECT); UR PCP QUAL NONE DETECTED (NONE DETECT)
[2019-12-29 19:03] LABS: URINE CASTS NONE SEEN; URINE CRYSTALS NONE SEEN; URINE YEAST NONE SEEN
--- NOTE | 2019-12-29 19:12 | PROVIDER DOCUMENTATION ---
This chart was entered by Ana Rouse Scribe, acting as scribe for Radha Ga MD. HPI-Syncope/Dizziness - General Chief Complaint: Syncope Stated Complaint: SEIZURE? Time Seen by Provider: 12/29/19 17:12 Source: patient, family (), EMS Allergies/Adverse Reactions: Patient Allergies Allergy/AdvReac Type Severity Reaction Status Date / Time No Known Allergies Allergy Verified 06/21/14 16:19 Home Medications: Home Medication List Medication Instructions Recorded Confirmed Last Taken Type Levothyroxine Sodium 50 mcg PO DAILY 06/21/14 12/22/19 07/26/14 20:00 History Aspirin [Adult Low Dose Aspirin EC] 81 mg PO DAILY 12/22/19 12/22/19 Unknown History LISINOpril [Prinivil] 10 mg PO BID 12/22/19 12/22/19 Unknown History Metoprolol Succinate E.r. [Toprol 25 mg PO BID 12/22/19 12/22/19 Unknown History Xl] Spironolactone 0.5 tab PO DAILY 12/22/19 12/22/19 Unknown History Docusate Sodium [Colace] 200 mg PO QHS cap 12/24/19 Unknown Rx Enoxaparin [Lovenox] 40 mg SUBQ Q24H #30 syringe 12/24/19 Unknown Rx Ergocalciferol (Vitamin D2) 50,000 unit PO Q7D cap 12/24/19 Unknown Rx [Vitamin D] Ferrous Sulfate 325 mg PO WBREAKFAST tab 12/24/19 Unknown Rx Hydrocodone/APAP 5 mg/325 mg 1 ea PO Q6H PRN #20 tab 12/24/19 Unknown Rx [[place]-5] Polyethylene Glycol 3350 [Miralax] 17 gm PO BID powder, packet 12/24/19 Unknown Rx Tamsulosin [Flomax] 0.4 mg PO DAILY cap 12/24/19 Unknown Rx - History of Present Illness-Syncope/Dizzy Nature of Presenting Problem: 79 yowm presents to the ed via ems after x2 syncopal episodes while in rehab. pt had LLE sx recently and is in PT. pt sts he had lunch which caused him to have nausea, gerd sx and not feel well. he told the staff he needed to cut PT short due to not feeling well. he sts they pushed him to keep going and when pt was placed in a wheelchair he had x2 brief episodes of syncope. pt on exam is back to baseline and in no distress Prior Episodes: reports: remote history Onset/Duration: reports: just prior to arrival Timing: reports: gone now Position/Activity at time of episode: reports: sitting Symptoms prior to episode: reports: nausea/vomiting (denies vomiting but had nausea), abdominal pain, other (dizziness and fatigue) Context: reports: lost consciousness Loss of Consciousness: brief (seconds) Location of injury. (If syncope resulted in an injury.): reports: none Current Symptoms: reports: none/feels normal Similar symptoms previously: reports: workup for same problem (years prior) Recently Seen Here or By Another Healthcare Provider: Yes (in rehab for LLE sx) Review of Systems - Adult - REVIEW OF SYSTEMS - ADULT Constitutional: reports: see HPI, fatique. denies: chills, fever Eyes: reports: no symptoms reported Ears, Nose, Mouth & Throat: reports: no symptoms reported Cardiovascular: denies: chest pain, palpitations Respiratory: denies: cough, shortness of breath, wheezing Gastrointestinal: reports: see HPI, abdominal pain, frequent heartburn, nausea. denies: vomiting Genitourinary: reports: no symptoms reported Musculoskeletal: denies: back pain, neck pain Integumentary: reports: no symptoms reported Neurological: reports: see HPI, dizziness/vertigo, syncope (x2). denies: headache/migraines Psychiatric: reports: no symptoms reported Endocrine: reports: no symptoms reported Hematologic/Lymphatic: reports: no symptoms reported Allergic/Immunologic: reports: no symptoms reported All Other Systems: Reviewed and Negative Past History - Adult - PAST MEDICAL HISTORY-ADULT Review of Records: reports: Old Records Reviewed, Nursing Assessment Review, Medications Reviewed, Social history reviewed & non-contributory. Major Childhood Illnesses: reports: denies history Cardiovascular: reports: CHF, HTN Respiratory: reports: asthma Gastrointestinal: reports: GERD Genitourinary: reports: denies history Musculoskeletal: reports: denies history Neurological: reports: denies history Psychiatric: reports: denies history Endocrine/Immune: reports: anemia, thyroid disorder Other Conditions: reports: denies history - PRIOR SURGERIES/PROCEDURES Surgical/Procedure History: reports: orthopedic (extremity) - PRIOR HOSPITALIZATIONS Prior Hospitalizations: reports: for other non-related - IMMUNIZATION STATUS Childhood Immunizations: See Nurse Assessment Flu Vaccine: See Nurse Assessment - FAMILY HISTORY Family History: reviewed, not pertinent - SOCIAL HISTORY Smoking: quit greater than 1 year Substance Use: denies Living Situation: family Physical Exam-General - PHYSICAL EXAM-ADULT Initial Vital Signs Reviewed: Yes - CONSTITUTIONAL General Appearance: appears well, alert, no apparent distress (pt is nontoxic in appearance) - EYES Eyes: PERRL/EOMI, pink conjunctivae - HEAD, EARS, NOSE, MOUTH & THROAT HENMT: moist mucous membranes - NECK Neck: non-tender, full range of motion, supple, normal inspection - RESPIRATORY Respiratory: chest non-tender, lungs clear, normal breath sounds - CARDIOVASCULAR Cardiovascular: normal peripheral pulses, regular rate, rhythm - CHEST (BREASTS) Chest/Breast: deferred - GASTROINTESTINAL (ABDOMEN) Abdominal Exam: normal bowel sounds, non tender, soft - GENITOURINARY Male Genitalia: deferred Rectal Exam: deferred Hemoccult Exam: deferred - MUSCULOSKELETAL Back Exam: normal inspection Extremity: normal capillary refill, pelvis stable, other (well healing scar noted to LLE) - SKIN Integumentary: normal color, normal turgor, warm/dry - NEUROLOGIC Neurologic: grossly normal - PSYCHIATRIC Psych/Mental Status: normal mood/affect, normal thought content, normal thought process, oriented x 3 Progress - PLAN OF CARE/RESULTS Progress/Plan/Lab Results: Vital Signs - 8 hr 12/29/19 15:19 Temperature 97.6 F Pulse Rate 64 Respiratory Rate 16 Blood Pressure 142/63 O2 Sat by Pulse Oximetry 99 Laboratory Results - last 24 hr 12/29/19 12/29/19 12/29/19 15:55 15:55 15:55 WBC 9.54 RBC 3.45 L Hgb 11.5 L Hct 35.7 L MCV 103.5 H MCH 33.3 H MCHC 32.2 L RDW Std Deviation 15.7 H Plt Count 246 MPV 10.1 Immature Gran % (Auto) 0.4 Neut % (Auto) 82.0 H Lymph % (Auto) 8.4 L [place] % (Auto) 7.8 Eos % (Auto) 1.3 Baso % (Auto) 0.1 Immature Gran # (Auto) 0.04 Neut # (Auto) 7.83 H Lymph # (Auto) 0.80 L [place] # (Auto) 0.74 H Eos # (Auto) 0.12 Baso # (Auto) 0.01 PT INR PTT (Actin FS) Sodium 139 Potassium 4.6 Chloride 102 Carbon Dioxide 24 L Anion Gap 13 BUN 24 H Creatinine 1.2 Estimated GFR/1.73 m2 58 BUN/Creatinine Ratio 20 Glucose 121 H POC Glucose Calculated Osmolality 283 Calcium 9.7 Total Bilirubin 1.34 H AST 43 H ALT 58 H Alkaline Phosphatase 59 Troponin T High Sens 18 Total Protein 6.8 Albumin 4.1 Globulin 2.7 Albumin/Globulin Ratio 1.5 Urine Source Urine Color Urine Turbidity Urine pH Ur Specific [place] Urine Protein Ur Glucose (Stick) Ur Ketones (Stick) Urine Blood Urine Nitrite Urine Bilirubin Urobilinogen Dipstick Urine Leukocytes Urine WBC (Auto) Urine RBC (Auto) U Epithel Cells (Auto) Urine Bacteria (Auto) Urine Crystals Small Round Cells Urine Casts Urine Yeast-like Cells Urine Opiates Screen Ur Oxycodone Screen Ur Methadone, Qual Ur Barbiturates Screen Ur Phencyclidine Scrn Ur Amphetamines Screen U Benzodiazepines Scrn Urine Cocaine Screen U Cannabinoids Screen 12/29/19 12/29/19 12/29/19 15:55 16:30 18:14 WBC RBC Hgb Hct MCV MCH MCHC RDW Std Deviation Plt Count MPV Immature Gran % (Auto) Neut % (Auto) Lymph % (Auto) [place] % (Auto) Eos % (Auto) Baso % (Auto) Immature Gran # (Auto) Neut # (Auto) Lymph # (Auto) [place] # (Auto) Eos # (Auto) Baso # (Auto) PT 13.9 INR 1.06 PTT (Actin FS) 28.7 Sodium Potassium Chloride Carbon Dioxide Anion Gap BUN Creatinine Estimated GFR/1.73 m2 BUN/Creatinine Ratio Glucose POC Glucose 128 H Calculated Osmolality Calcium Total Bilirubin AST ALT Alkaline Phosphatase Troponin T High Sens Total Protein Albumin Globulin Albumin/Globulin Ratio Urine Source Urine Color Urine Turbidity Urine pH Ur Specific [place] Urine Protein Ur Glucose (Stick) Ur Ketones (Stick) Urine Blood Urine Nitrite Urine Bilirubin Urobilinogen Dipstick Urine Leukocytes Urine WBC (Auto) Urine RBC (Auto) U Epithel Cells (Auto) Urine Bacteria (Auto) Urine Crystals Small Round Cells Urine Casts Urine Yeast-like Cells Urine Opiates Screen PRESUMPTIVE POSITIVE A Ur Oxycodone Screen NONE DETECTED Ur Methadone, Qual NONE DETECTED Ur Barbiturates Screen NONE DETECTED Ur Phencyclidine Scrn NONE DETECTED Ur Amphetamines Screen NONE DETECTED U Benzodiazepines Scrn NONE DETECTED Urine Cocaine Screen NONE DETECTED U Cannabinoids Screen NONE DETECTED 12/29/19 18:14 WBC RBC Hgb Hct MCV MCH MCHC RDW Std Deviation Plt Count MPV Immature Gran % (Auto) Neut % (Auto) Lymph % (Auto) [place] % (Auto) Eos % (Auto) Baso % (Auto) Immature Gran # (Auto) Neut # (Auto) Lymph # (Auto) [place] # (Auto) Eos # (Auto) Baso # (Auto) PT INR PTT (Actin FS) Sodium Potassium Chloride Carbon Dioxide Anion Gap BUN Creatinine Estimated GFR/1.73 m2 BUN/Creatinine Ratio Glucose POC Glucose Calculated Osmolality Calcium Total Bilirubin AST ALT Alkaline Phosphatase Troponin T High Sens Total Protein Albumin Globulin Albumin/Globulin Ratio Urine Source CLEAN CATCH Urine Color YELLOW Urine Turbidity HAZY Urine pH 6.5 Ur Specific [place] 1.026 Urine Protein 50 A Ur Glucose (Stick) NEGATIVE Ur Ketones (Stick) NEGATIVE Urine Blood MODERATE A Urine Nitrite NEGATIVE Urine Bilirubin NEGATIVE Urobilinogen Dipstick >12 A Urine Leukocytes LARGE A Urine WBC (Auto) TNTC A Urine RBC (Auto) TNTC A U Epithel Cells (Auto) <10 Urine Bacteria (Auto) 2+ Urine Crystals NONE SEEN Small Round Cells Not Reportable Urine Casts NONE SEEN Urine Yeast-like Cells NONE SEEN Urine Opiates Screen Ur Oxycodone Screen Ur Methadone, Qual Ur Barbiturates Screen Ur Phencyclidine Scrn Ur Amphetamines Screen U Benzodiazepines Scrn Urine Cocaine Screen U Cannabinoids Screen Orders Category Date Time Status Cardiac Monitoring DIRECTED Care 12/29/19 17:[address] HEAD W/O CONTRAST [CT] Stat Exams 12/29/19 17:13 Completed CBC WITH ELECTRONIC DIFF [HEME] Stat Lab 12/29/19 15:55 Completed COMPREHENSIVE METABOLIC PANEL [CHEM] Stat Lab 12/29/19 15:55 Completed PROTIME WITH INR [COAG] Stat Lab 12/29/19 15:55 Completed PTT [COAG] Stat Lab 12/29/19 15:55 Completed TROPONIN T HIGH SENSITIVITY Stat Lab 12/29/19 15:55 Completed URINALYSIS W/POSS RFLX CULT [URINALYSIS] Stat Lab 12/29/19 18:14 Completed URINE CULTURE [RM] Routine Lab 12/29/19 18:14 Received URINE DRUG SCREEN Stat Lab 12/29/19 18:14 Completed URINE MANUAL MICROSCOPIC [URINALYSIS] Stat Lab 12/29/19 18:14 Completed EKG [EKG] Stat Ther 12/29/19 17:13 Ordered Result Diagrams: 12/29/19 15:55 12/29/19 15:55 - EKG 1 Time of EKG reading by physician:: 16:36 EKG Read and Signed by:: Diana Matias EKG Interpretation (*Must complete 3 of following elements*): Abnormal Rate: 71 Rhythm: wide qrs rhythm [place]: normal QRS: other (nonspecific intraventricular block) IA Interval: normal Comments: T wave abnormality, consider lateral ischemia - CT/MRI 1 CT Study: Head Impression: See EMR Report (EXAM: CT HEAD W/O CONTRAST HISTORY: stroke like symptoms TECHNIQUE: CT head without contrast COMPARISON: 12/14/2013 FINDINGS: No parenchymal hemorrhage. No epidural or subdural hematoma. No subarachnoid hemorrhage. There are mild chronic microvascular ischemic changes. No mass identified on this noncontrasted exam. No hydrocephalus. No sinus opacification. IMPRESSION: 1.No hemorrhage 2.Mild chronic microvascular ischemic changes This exam was performed using automated exposure control, adjustment of mA or kV according to patient size, and/or use of iterative reconstruction technique. Electronically signed by Ayaan Montenegro 12/29/2019 5:45 PM 12/29/191744 Interpreting Physician: Ayaan Montenegro MD Dictated Date/Time: 12/29/191742 cc: Radha Ga MD; Bertrand Mathis) - CONSULTS/PCP/HOSPITALIST Notification #1 *Consult/PCP/Hospitalist*: dr Masters Consult Disposition: Admit (accepts admission but will see patient in the ER) Departure - Departure Date of Disposition Decision: 12/29/19 Time of Disposition Decision: 19:35 DIAGNOSIS: Syncope Qualifiers: Syncope type: unspecified Qualified Code(s): R55 - Syncope and collapse UTI (urinary tract infection) Qualifiers: Urinary tract infection type: site unspecified Hematuria presence: without hematuria Qualified Code(s): N39.0 - Urinary tract infection, site not specified Disposition: ADMITTED INPATIENT 09 Certified Medical Emergency: Emergent Condition: Stable Referrals and Follow-Ups: Bertrand Mathis [Primary Care Provider] - - Critical Care Note This patient required my direct & personal management of CC.: No Attestation - Physician/ MAMIE Attestation Patient care was provided by Advanced Practice Provider:: No The physician spent face to face time with patient:: Yes Advanced Practice Provider documentation review:: Supervising physician onsite and consulted in the evaluation and care of this patient. The physician did have a face to face encounter with the patient. This chart was documented by the indicated scribe, (Ana Rouse Scribe) and accurately reflects the services I performed and decisions made by me, Radha Lloyd MD, as attested by the provider's signature.
[2019-12-29] MEDS ORDERED: ROCEPHIN 1 GM in NS 50 ML IV ONE (19:36)
[2019-12-29] MEDS ORDERED: ZOFRAN IV PRN (21:11)
[2019-12-29] MEDS: NS 1,000 ML IV SCH (21:15)
--- NOTE | 2019-12-29 21:52 | HISTORY AND PHYSICAL ---
PRIMARY CARE PHYSICIAN: Bertrand Mathis MD CHIEF COMPLAINT: Passed out. HISTORY OF PRESENTING ILLNESS: An 79-year-old male with a history of hypertension, hypothyroidism and BPH, who recently had a fall and had a left femur nailing. He was sent to rehab at [facility]. While he was there, he was receiving intensive physical therapy. The patient states that he could not handle it, and earlier today he thinks that he did too much and when he went back to his wheelchair, he somewhat slumped over. He was brought to the emergency department and evaluated. His laboratory studies were basically unremarkable; however, due to his presenting symptoms, it was thought that we will place him for observation for further evaluation and management. The patient also states that he had a recent cardiac evaluation by his securities broker, which was normal. At the time of my examination the patient denied any headache, fever, chills, chest pain, shortness of breath, hemoptysis, melena or weight changes. PAST MEDICAL HISTORY: Includes hypertension, hypothyroidism, BPH. PAST SURGICAL HISTORY: Left knee surgery, prostate surgery, left femur nailing. ALLERGIES: No known drug allergies. MEDICATIONS: Current medications include aspirin 81 mg p.o. daily, Lovenox 40 mg subcutaneous daily, ferrous sulfate 325 mg p.o. daily, [place] 5 one p.o. q.6 hours, levothyroxine 50 mcg p.o. daily, lisinopril 5 mg p.o. daily, metoprolol 25 mg p.o. daily, spironolactone 25 mg p.o. daily, tamsulosin 0.4 mg p.o. daily. SOCIAL HISTORY: He is a former smoker. No history of alcohol or illicit drug use. FAMILY HISTORY: No history of coronary disease. REVIEW OF SYSTEMS: Fourteen-point review of systems is as in HPI. Other systems negative. PHYSICAL EXAMINATION: GENERAL: Cooperative, friendly male. He is resting comfortably now. VITAL SIGNS: Temperature 97.6 degrees, pulse 64, respirations 16, blood pressure 142/63. HEENT: Atraumatic, normocephalic. Extraocular movements intact. PERRLA. NECK: No masses. CHEST: Clear to auscultation. CARDIOVASCULAR: Regular rate and rhythm. ABDOMEN: Soft. Positive bowel sounds. EXTREMITIES: No edema. NEUROLOGIC: He is awake, alert, oriented x3. GENITOURINARY: No bladder distention. SKIN: Warm. LABORATORY DATA: WBCs 9.54, hemoglobin 11.5, hematocrit 35.7, platelets 246,000. Sodium 139, potassium 4.6, chloride 102, CO2 is 24, BUN is 24, creatinine is 1.2, glucose is 121. UA shows blood, large leukocytes and 2+ bacteria. DIAGNOSTIC DATA: CT of the head: No hemorrhage; chronic microvascular ischemic changes. ASSESSMENT: An 79-year-old male with a history of hypertension, hypothyroidism, benign prostatic hypertrophy who was at [facility]. While he was there he was receiving intensive physical therapy. He states that he became fatigued and somewhat passed out. He was brought to the emergency department, was evaluated, and due to his presenting symptoms we will place him for observation for further evaluation and management. 1. Syncopal episode, probably from his intensive physical therapy he received. 2. Suspected urinary tract infection. 3. Hypertension. 4. Hypothyroidism. PLAN: 1. We will admit the patient to the medical floor with telemetry. 2. Check orthostatic blood pressure and pulse. 3. We will check a carotid duplex and echocardiogram if one has not been done within the last 6 months. 4. We will check urine cultures. Start the patient on empiric antibiotics. 5. Monitor blood pressure closely and check orthostatic vital signs. 6. Restart his other home medications. 7. The patient is on Lovenox, and that will suffice for DVT prophylaxis. 8. We will continue to follow, reassess and make further recommendation based on patient's clinical course. cc: Augusto Masters MD
[2019-12-30] MEDS: NORCO-5 PO PRN ×3 (00:47→22:23)
[2019-12-30 07:59] LABS: BASO# 0.01 X1000 (0.0-0.2); BASO% 0.2 % (0.0-0.8); EOS# 0.18 X1000 (0.0-0.7); EOS% 3.6 % (0.0-10.0); HEMATOCRIT 31.2 % (42.0-52.0); HEMOGLOBIN 9.8 g/dL (14.0-18.0); LYMPH% 29.6 % (20.5-51.1); MCH 32.9 PG (27-31); MCHC 31.4 g/dL (33-37); MCV 104.7 FL (81-99); MONO# 0.72 X1000 (0.11-0.59); MONO% 14.2 % (1.7-9.3); MPV 9.9 FL (7.4-10.4); NEUT# 2.65 X1000 (1.4-6.5); NEUT% 52.4 % (42.2-75.2); PLT 231 X1000 (130-400); RBC 2.98 XMIL (4.7-6.1); RDW 15.5 % (11.5-14.5); WBC 5.06 X1000 (4.8-10.8)
[2019-12-30 08:12] LABS: AGAP 10; BUN 20 mg/dL (8-22); CALCIUM 8.7 mg/dL (8.8-10.2); CHLORIDE 106 mmol/L (98-107); COSMO 279; ESTIMATED GFR > 60; GLUCOSE 103 mg/dL (70-104); POTASSIUM 4.4 mmol/L (3.5-5.1); SODIUM 138 mmol/L (136-145); TCO2 22 mmol/L (25-35)
[2019-12-30] MEDS: NS 1,000 ML IV SCH ×2 (09:18→20:58)
[2019-12-30] MEDS: LOVENOX SUBQ SCH (09:19)
[2019-12-30] MEDS ORDERED: VITAMIN D PO SCH (10:00)
--- NOTE | 2019-12-30 10:38 | PROGRESS NOTE ---
DATE: 12/30/2019 SUBJECTIVE: I have seen and examined Mr. Goss today. Mr. Goss is an 79-year-old gentleman, who presented to the emergency room from rehab because of passing out. Mr. Goss refers that this is not the first time, he said any time he is under any stressful event he tends to pass out and this is about probably the third or fourth time. He said was doing pretty good at the rehab, but got himself over-exerted with Physical Therapy and then he just passed out on them. He was brought into the emergency room where he was found to have stable vitals, was admitted. OBJECTIVE: Vital Signs: Blood pressure is currently 165/64, pulse of 71, respiration is 20, temperature is 98.1 degrees. General Exam: Mr. Goss, 79-year-old gentleman. He is in bed, no distress. HEENT: Mucosa is pink and moist. Anicteric. Acyanotic. Neck: Supple. Chest: Clear to auscultation. No crepitations. No rhonchi. Cardiovascular: Regular rate and rhythm Gastrointestinal: Abdomen is soft, nontender. Bowel sounds present. Extremities: No pedal edema. MEASURER: Patient is awake, alert, oriented. There is no focal deficit. The patient has a recent left side orthopedic surgical incision, which is well affronted. LABORATORY DATA: WBC is 5.06, hemoglobin is 9.8, platelet count of 231,000. Chemistry is also reviewed, is completely within normal range. DIAGNOSTIC STUDIES: A CT scan of the head which was done on admission shows no hemorrhage, mild chronic microvascular changes. ASSESSMENT: 1. Syncopal episode most likely due to vasovagal reaction. 2. Dirty urine, questionable urinary tract infection. Mr. Goss however does not complain of any urinary symptoms. 3. Hypertension. 4. Hypothyroidism. 5. Macrocytic anemia. We will check a B12 and folate levels. cc: Néstor Pearce MD [facility]
--- NOTE | 2019-12-30 12:15 | EKG Report ---
Test Performed on : 12/29/2019 4:36:44 PM Test Reason : Stroke like symptoms Blood Pressure : / mmHG Vent. Rate : 071 BPM Atrial Rate : 072 BPM P-R Int : 000 ms QRS Dur : 140 ms QT Int : 412 ms P-R-T Axes : 000 -24 143 degrees QTc Int : 447 ms Wide QRS rhythm. Nonspecific intraventricular block T wave abnormality, consider lateral ischemia Abnormal ECG When compared with ECG of 27-JUL-2014 09:28, Wide QRS rhythm. has replaced Sinus rhythm. Unconfirmed Result
[2019-12-30] MEDS: MIRALAX PO SCH (20:59)
[2019-12-30] MEDS: TOPROL XL PO SCH (21:00)
[2019-12-30] MEDS: PRINIVIL PO SCH (21:01)
[2019-12-30] MEDS: PATIENT'S OWN MED PO SCH (21:01)
[2019-12-31] MEDS: ALDACTONE PO SCH (08:06)
[2019-12-31] MEDS: SYNTHROID PO SCH (08:06)
[2019-12-31] MEDS: ASPIRIN EC PO SCH (08:06)
[2019-12-31] MEDS: PRINIVIL PO SCH ×2 (08:06→20:53)
[2019-12-31] MEDS: FERROUS SULFATE PO SCH (08:06)
[2019-12-31] MEDS: FLOMAX PO SCH (08:07)
[2019-12-31] MEDS: TOPROL XL PO SCH ×2 (08:07→20:53)
[2019-12-31] MEDS: PATIENT'S OWN MED PO SCH (08:07)
[2019-12-31] MEDS: LOVENOX SUBQ SCH (08:07)
[2019-12-31] MEDS: MIRALAX PO SCH ×2 (08:09→20:53)
--- NOTE | 2019-12-31 10:59 | PROGRESS NOTE ---
DATE: 12/31/2019 SUBJECTIVE: I have seen and examined Mr. Goss today. Mr. Goss refers to be doing well. Denies any new complaints. He was actually sitting up in a chair at the bedside. OBJECTIVE: Vital Signs: Blood pressure is 164/77, pulse of 65, respirations 19, temperature is 98.6 degrees. General: Mr. Goss is an 79-year-old, gentleman. He was sitting in a chair. No distress. HEENT: Mucosa is pink and moist. Anicteric. Acyanotic. Neck: Supple. Chest: Good air entry bilaterally. There were no crepitations, no rhonchi. Cardiovascular: Regular rate and rhythm. There are no murmurs, no rubs, no gallops. GI: Abdomen was soft, nontender. Bowel sounds present. Extremities: No pedal edema. [employer]CTION [employer]: The patient is awake, alert, oriented. There is no focal deficit. Musculoskeletal: Left hip has a surgical incision, which looks clean. LABORATORY DATA: None for today. ASSESSMENT: 1. Syncopal episode secondary to vasovagal reaction. 2. Hypertension, stable. 3. Hypothyroidism. 4. Macrocytic anemia with normal TSH and B12. We are pending the folate level. 5. Dirty urine with negative culture. Blood cultures have also been unremarkable. In general, I think Mr. Goss is doing well. His orthostatic vitals are negative. He does not feel anymore dizzy. He has not experienced any more syncopal episode. So far, investigations have been unremarkable. We plan to discharge him tomorrow to rehab to continue with his physical therapy. cc: Néstor Pearce MD [facility]OSPITALChing
[2019-12-31] MEDS ORDERED: FOLIC ACID PO ONE (12:45)
[2019-12-31] MEDS: NORCO-5 PO PRN (13:13)
[2020-01-01] MEDS: PATIENT'S OWN MED PO SCH ×3 (01:12→20:38)
[2020-01-01] MEDS: SYNTHROID PO SCH (06:23)
[2020-01-01] MEDS: TOPROL XL PO SCH ×2 (08:23→20:38)
[2020-01-01] MEDS: FERROUS SULFATE PO SCH (08:23)
[2020-01-01] MEDS: PRINIVIL PO SCH ×3 (08:23→20:38)
[2020-01-01] MEDS: LOVENOX SUBQ SCH (08:24)
[2020-01-01] MEDS: ALDACTONE PO SCH (08:24)
[2020-01-01] MEDS: FLOMAX PO SCH (08:24)
[2020-01-01] MEDS: FOLIC ACID PO SCH (08:24)
[2020-01-01] MEDS: ASPIRIN EC PO SCH (08:24)
[2020-01-01] MEDS: NORCO-5 PO PRN (13:06)
[2020-01-01] MEDS: MIRALAX PO SCH ×2 (13:08→20:37)
--- NOTE | 2020-01-01 18:06 | PROGRESS NOTE ---
DATE: 01/01/2020 SUBJECTIVE: I have seen and examined Mr. Goss this morning. He refers to be doing a whole lot better. He has also been able to do physical therapy this morning. OBJECTIVE: Vital signs: Blood pressure is 152/74, pulse of 74, respirations 20, temperature is 97.5 degrees. General: Mr. Feliciano is an 79-year-old elderly male. He is in bed in no distress. Mucosa is pink and moist. Anicteric. Acyanotic. Neck: Supple. Chest: Good air entry bilaterally. There were no crepitations, no rhonchi. Cardiovascular: Regular rate and rhythm. There are no murmurs, no rubs, no gallops. Gastrointestinal: Abdomen is soft, nontender. Bowel sounds present. Extremities: No pedal edema. Central nervous system: Patient is awake, alert, and oriented. There is no focal deficit. Musculoskeletal: The left hip has a surgical incision, which looks clean. LABORATORY DATA: None for this morning. ASSESSMENT AND PLAN: 1. Syncope on admission secondary to vasovagal reaction. 2. Hypertension, stable. 3. Hypothyroidism. We will continue with levothyroxine. 4. Macrocytic anemia. This is secondary to folate deficiency. 5. Previous history of benign prostatic hypertrophy status post transurethral resection of prostate. The patient seems to be on tamsulosin over here; however, he refers never to have been on this medication so I have discontinued this. I have also advised Mr. Goss to follow up with urology. 6. Folate deficiency. We will continue replacement. 7. Recent left intertrochanteric hip fracture status post left trochanteric fixation nail placement done by Dr. Bonilla on 12/23/2019. In general today we have gone up on the lisinopril for better blood pressure control. We are going to continue with the other management. I have discontinued the tamsulosin. I have also reviewed the physical therapy note. I have been told that his insurance has declined him rehab, and I am pending to do a [id number] talk tomorrow. cc: MD LUDA Tovar
[2020-01-02] MEDS: SYNTHROID PO SCH (06:07)
[2020-01-02 07:41] VITALS: BP 153/67
[2020-01-02] MEDS: ASPIRIN EC PO SCH (08:23)
[2020-01-02] MEDS: FERROUS SULFATE PO SCH (08:23)
[2020-01-02] MEDS: ALDACTONE PO SCH (08:23)
[2020-01-02] MEDS: FOLIC ACID PO SCH (08:23)
[2020-01-02] MEDS: PRINIVIL PO SCH (08:23)
[2020-01-02] MEDS: TOPROL XL PO SCH (08:23)
[2020-01-02] MEDS: LOVENOX SUBQ SCH (08:24)
[2020-01-02] MEDS: MIRALAX PO SCH (08:31)
[2020-01-02] MEDS: PATIENT'S OWN MED PO SCH (08:32)
--- NOTE | 2020-01-03 09:10 | DISCHARGE SUMMARY ---
ADMISSION DATE: 12/29/2019 DISCHARGE DATE: 01/02/2020 I have seen and examined Mr. Goss today. CONSULTATIONS DURING THIS ADMISSION: None. INVASIVE PROCEDURES DONE DURING THIS ADMISSION: None. IMAGING STUDIES OF SIGNIFICANCE: A CT scan of the head showed no hemorrhage, mild chronic microvascular ischemic changes. ADMISSION DIAGNOSES: 1. Syncopal episode. 2. Suspected urinary tract infection. 3. Hypertension. 4. Hypothyroidism. DISCHARGE DIAGNOSES: 1. Syncopal episode on admission secondary to vasovagal reaction. 2. Hypertension. 3. Hypothyroidism. 4. Microcytic anemia secondary to folate deficiency. 5. Previous history of benign prostatic hypertrophy, status post transurethral resection of prostate. 6. Folate deficiency. 7. Recent left intertrochanteric hip fracture, status post left trochanteric fixation nail placement by Dr. Bonilla on 12/23/2019. 8. Generalized weakness. DISCHARGE MEDICATIONS: 1. Levothyroxine 50 mcg p.o. daily. 2. Aspirin 81 mg p.o. daily. 3. Spironolactone 12.5 daily. 4. Metoprolol 25 mg b.i.d. 5. Colace 200 mg p.o. at bedtime. 6. Iron sulfate 325 p.o. daily. 7. Ergocalciferol 50,000 p.o. every 7 days. 8. Lisinopril 10 mg b.i.d. 9. Folic acid 1 mg p.o. daily. 10. Xarelto 10 mg p.o. daily for 10 more days. PRESENTING COMPLAINT: Passing out. HISTORY OF PRESENT COMPLAINT: Mr. Goss is an 79-year-old, gentleman, who was recently discharged from the hospital to rehab after he sustained a fall at home, sustaining an injury to the left hip, underwent surgery, and went to rehab. He said over the rehab, he was overworked, and while he was in a standing position, he felt dizzy and fell down. He was brought into the emergency room, where he was admitted for syncopal episode. Mr. Goss was admitted. HOSPITAL COURSE: It was initially thought that he had some urinary tract infection, which culture came back negative, so antibiotics were all discontinued. His blood culture was also negative. Laboratory data revealed microcytic anemia. Folate was deficient. He was started on folate replacement therapy. He did not have any more dizzy spells or syncopal episode in the hospital. We thought he was stable to be discharged back to the rehab. Mr. Goss was evaluated by Physical Therapy yesterday, and he was able to do 150 feet with front wheel walker. The report from Physical Therapy continued to recommend skilled physical therapy, so we did recommend that he goes back to the rehab. Unfortunately, his insurance company declined him going to rehab. I spoke today directly with Dr. Mullen, who is the Human physician and he told me that he thinks Mr. Goss has achieved more than needed to go to penitentiary facility, and that he has reviewed the Physical Therapy note, and from their standpoint, Mr. Goss does not meet the minimum requirement from a Medicare standpoint for him to go to rehab or penitentiary facility, so he will continue to decline. I communicated this information to Mr. Goss and the , and they are upset. However, they said they cannot afford to go and pay out of pocket, so they would go home with home health. All the other discharge recommendations have been discussed with both of them, and they voiced understanding. TIME SPENT: Time spent for discharge is 38 minutes. cc: MD Bertrand Tovar MD Dr. Sharp MTDD
== END 2020-01-02 13:15 | disposition home health service (06) ==
LOC: SUPCPDRO → ED 15:04 → INTOOBSV 21:57 → 3N 21:57 → SUATTDRO 21:57
PROVIDERS: ATTEND Internal Medicine